=== PATIENT | female | born 1940 | race American Indian/Alaskan Native ===

== ENCOUNTER 2017-02-02 08:12 | Outpatient (CLI) | payer MEDICARE ==
--- NOTE | 2017-02-02 09:04 | Mammography Report ---
BILATERAL DIGITAL SCREENING MAMMOGRAM WITH CAD: 02/02/17 08:12:00 CLINICAL: Routine screening.Breast cancer survivor status post left partial mastectomy and radiation therapy 18 years ago. COMPARISON:01/13/16 and 01/08/15 FINDINGS: The breasts are heterogeneously dense, which may obscure small masses. Left upper outer postsurgical scar is more prominent and more dense than on the last exam and requires additional imaging. No suspicious architectural distortion or suspicious calcifications. The right breast is negative. IMPRESSION: Changes at the left postsurgical scar requiring additional imaging. BI-RADS CATEGORY: 0--Needs Additional Imaging RECOMMENDATION: Recall for spot magnification views of the left scar and left breast ultrasound if needed. COMMENT: Patient follow-up letters are generated via our [employer] application.
== END 2017-02-02 08:13 | disposition home or self-care (01) ==
LOC: SPVWC 08:12
PROVIDERS: ATTEND Internal Medicine
DX: Z12.31 Encounter for screening mammogram for malignant neoplasm of breast (principal); Z90.12 Acquired absence of left breast and nipple
CPT/HCPCS: 77067; G0202

== ENCOUNTER 2017-02-17 10:00 | Outpatient (CLI) | payer MEDICARE ==
--- NOTE | 2017-02-17 10:24 | Mammography Report ---
LEFT DIGITAL DIAGNOSTIC MAMMOGRAM : 02/17/17 CLINICAL: Recall to evaluate increased density the scar. COMPARISON:02/02/17 screening FINDINGS: MLO and CC magnification views were performed and demonstrate satisfactory effacement and a normal appearance of the scar. No mass, suspicious architectural distortion or suspicious calcifications. IMPRESSION: Negative mammogram with benign scar. BI-RADS CATEGORY: 2 - - Benign RECOMMENDATION: Routine mammographic screening in one year. ACR BI-RADS MAMMOGRAPHIC CODES: 0 = Needs additional imaging evaluation; 1 = Negative; 2 = Benign; 3 = Probably benign; 4 = Suspicious; 5 = Malignant; 6 = Known biopsy-proven malignancy COMMENT: 1. Dense breast tissue, i.e., adenosis, fibrocystic changes, etc., may obscure an underlying neoplasm. 2. Approximately 10% of cancers are not detected with mammography. 3. A negative mammography report should not delay biopsy if a clinically suspicious mass is present. COMMENT: Patient follow-up letters are generated via our [employer] application.
== END 2017-02-17 10:01 | disposition home or self-care (01) ==
LOC: SPVWC 10:00
PROVIDERS: ATTEND Internal Medicine
DX: R92.8 Other abnormal and inconclusive findings on diagnostic imaging of breast (principal)
CPT/HCPCS: G0206-LT

== ENCOUNTER 2018-03-30 09:09 | Outpatient (CLI) | payer MEDICARE ==
--- NOTE | 2018-03-31 12:06 | Mammography Report ---
BILATERAL DIGITAL SCREENING MAMMOGRAM with CAD: 03/30/18 09:09:00 CLINICAL: Routine screening.Breast cancer survivor status post left partial mastectomy and radiation therapy 18 years ago. COMPARISON:02/17/17 and 02/02/17 and 01/13/16 FINDINGS: The breasts are heterogeneously dense, which may obscure small masses. The right fibroglandular pattern is stable with no mass, architectural distortion or suspicious calcifications. Stable left upper outer postsurgical scar.However, new calcifications in a ductal distribution have developed inferior to the scar and required additional imaging. IMPRESSION: New left calcifications requiring further workup. BI-RADS CATEGORY: 0 -- Additional Imaging Evaluation Required RECOMMENDATION: Recall for left mediolateral and spot magnification ML and CC views. ACR BI-RADS MAMMOGRAPHIC CODES: 0 = Needs additional imaging evaluation; 1 = Negative; 2 = Benign; 3 = Probably benign; 4 = Suspicious; 5 = Malignant; 6 = Known biopsy-proven malignancy COMMENT: 1. Dense breast tissue, i.e., adenosis, fibrocystic changes, etc., may obscure an underlying neoplasm. 2. Approximately 10% of cancers are not detected with mammography. 3. A negative mammography report should not delay biopsy if a clinically suspicious mass is present. COMMENT: Patient follow-up letters are generated via our [employer] application.
== END 2018-03-30 09:10 | disposition home or self-care (01) ==
LOC: SPVWC 09:09
PROVIDERS: ATTEND Internal Medicine
DX: Z12.31 Encounter for screening mammogram for malignant neoplasm of breast (principal)
CPT/HCPCS: 77067

== ENCOUNTER 2018-04-14 10:26 | Outpatient (CLI) | payer MEDICARE ==
--- NOTE | 2018-04-14 10:40 | Mammography Report ---
LEFT DIGITAL DIAGNOSTIC MAMMOGRAM : 04/14/18 10:00:00 CLINICAL: Recalled for new calcifications. COMPARISON:03/30/18 screening FINDINGS: ML and ML and CC spot magnification views were performed and demonstrate new pleomorphic calcifications in a ductal distribution approximately 4 cm from the scar. 2 separate linear groups are identified on the ML view. No associated mass or architectural distortion. Spot images of the surgical scar are negative. IMPRESSION: New suspicious calcifications of the left upper outer breast. Recommend stereotactic biopsy to exclude malignancy. BI-RADS CATEGORY: 4--Suspicious I discussed the findings and the recommendation for a stereotactic needle core biopsy of the left breast with the patient and her at the time of the examination. ACR BI-RADS MAMMOGRAPHIC CODES: 0 = Needs additional imaging evaluation; 1 = Negative; 2 = Benign; 3 = Probably benign; 4 = Suspicious; 5 = Malignant; 6 = Known biopsy-proven malignancy COMMENT: 1. Dense breast tissue, i.e., adenosis, fibrocystic changes, etc., may obscure an underlying neoplasm. 2. Approximately 10% of cancers are not detected with mammography. 3. A negative mammography report should not delay biopsy if a clinically suspicious mass is present. COMMENT: Patient follow-up letters are generated via our [employer] application.
== END 2018-04-14 10:27 | disposition home or self-care (01) ==
LOC: SPVWC 10:26
PROVIDERS: ATTEND Internal Medicine
DX: R92.8 Other abnormal and inconclusive findings on diagnostic imaging of breast (principal)

== ENCOUNTER 2018-11-01 09:13 | Outpatient (CLI) | payer MEDICARE ==
--- NOTE | 2018-11-01 09:55 | Mammography Report ---
LEFT DIGITAL DIAGNOSTIC MAMMOGRAM with CAD: 11/01/18 09:13:00 CLINICAL: Followup after benign stereotactic biopsy of calcifications. COMPARISON:05/19/18 and 04/14/18 FINDINGS: Stable upper-outer postsurgical scar. In upper outer biopsy clip correlates with the recent stereotactic biopsy and calcifications have been removed near the clips. No residual suspicious calcifications.No mass or suspicious architectural distortion. IMPRESSION: No mammographic evidence of malignancy.Benign scar and calcifications. BI-RADS CATEGORY: 2 - - Benign RECOMMENDATION: Routine mammographic screening. ACR BI-RADS MAMMOGRAPHIC CODES: 0 = Needs additional imaging evaluation; 1 = Negative; 2 = Benign; 3 = Probably benign; 4 = Suspicious; 5 = Malignant; 6 = Known biopsy-proven malignancy COMMENT: 1. Dense breast tissue, i.e., adenosis, fibrocystic changes, etc., may obscure an underlying neoplasm. 2. Approximately 10% of cancers are not detected with mammography. 3. A negative mammography report should not delay biopsy if a clinically suspicious mass is present. COMMENT: Patient follow-up letters are generated by our [employer] application.
== END 2018-11-01 09:14 | disposition home or self-care (01) ==
LOC: SPVWC 09:13
PROVIDERS: ATTEND Surgery
DX: R92.1 Mammographic calcification found on diagnostic imaging of breast (principal)

== ENCOUNTER 2019-05-23 08:53 | Outpatient (CLI) | payer MEDICARE ==
--- NOTE | 2019-05-23 09:43 | Mammography Report ---
DIGITAL SCREENING MAMMOGRAM WITH CAD, 05/23/2019 INDICATION: Routine screening mammography. Breast cancer survivor status post left partial mastectomy and radiation therapy. She had a benign left stereotactic biopsy for calcifications 05/19/2018 TECHNIQUE: Digital bilateral 2D mammography was obtained in the craniocaudal and mediolateral obliq ue projections. This examination was interpreted with the benefit of Computer-Aided Detection analysi s. COMPARISON: 03/30/2018 FINDINGS: Breast Density: The breasts are heterogeneously dense, which may obscure small masses. There is no evidence of dominant mass, suspicious calcifications or architectural distortion in eithe r breast. The left breast is smaller than the right with stable upper posterior scar. Benign left upp er calcifications with a biopsy clip. IMPRESSION: Follow up recommendation: Routine yearly BI-RADS Category 2: Benign. A "normal" or negative report should not discourage follow up or biopsy of a clinically significant f inding. A written summary of these findings will be mailed to the patient. The patient will be entered into a mammography reporting system which will generate a reminder letter for the patient's next appointmen t at the appropriate interval. The [employer] recommends yearly mammograms starting at age 40 and continuing as l vasquez as a woman is in good health. Breast MRI is recommended for women with an approximate 20-25% or greater lifetime risk of breast cancer, including women with a strong family history of breast or ova ayala cancer or who have been treated for Hodgkin's disease. Signer Name: John Caro MD Signed: 05/23/2019 9:39 AM Workstation Name: [id number]
== END 2019-05-23 08:54 | disposition home or self-care (01) ==
LOC: SPVWC 08:53
PROVIDERS: ATTEND Surgery
DX: Z12.31 Encounter for screening mammogram for malignant neoplasm of breast (principal)
CPT/HCPCS: 77067